=== PATIENT | male | born 1980 | race Caucasian/White ===

== ENCOUNTER 2017-04-27 16:27 | Emergency (ER) | payer BC ==
[2017-04-27 16:32] VITALS: BP 147/83
[2017-04-27] MEDS ORDERED: PREDNISONE 20 MG TABLET PO ONE (17:20)
--- NOTE | 2017-04-27 17:24 | ER Document Report ---
HPI - HPI Patient complains to provider of: Skin rash Onset: Other - 5 days Onset/Duration: Persistent Quality of pain: Burning Pain Level: 4 Context: Patient presents complaining of pruritic skin rash for the past 5 days. Patient states he has been working outside recently and is concerned that he has poison kana. Patient has used [id number] poison kana skin wash without improvement of his symptoms. Associated Symptoms: Other - skin rash Exacerbated by: Denies Relieved by: Denies Similar symptoms previously: No Recently seen / treated by doctor: No - ROS ROS below otherwise negative: Yes Systems Reviewed and Negative: Yes All other systems reviewed and negative - CONSTITUTIONAL Constitutional: DENIES: Fever, Chills - NEURO Neurology: DENIES: Weakness - DERM Skin Problems: Rash Past Medical History - General Information source: Patient - Social History Smoking Status: Unknown if Ever Smoked Frequency of alcohol use: None Drug Abuse: None Occupation: [employer] Family History: Reviewed & Not Pertinent Renal/ Medical History: Denies: Hx Peritoneal Dialysis Psychiatric Medical History: Reports: Hx Anxiety, Hx Depression Surgical Hx: Negative Vertical Provider Document - CONSTITUTIONAL Agree With Documented VS: Yes Exam Limitations: No Limitations General Appearance: WD/WN, No Apparent Distress - INFECTION CONTROL TRAVEL OUTSIDE OF THE [place] IN LAST 30 DAYS: No - HEENT HEENT: Atraumatic, Normal ENT Exam, Normocephalic - NECK Neck: Normal Inspection, Supple - RESPIRATORY Respiratory: Breath Sounds Normal, No Respiratory Distress O2 Sat by Pulse Oximetry: 98 - CARDIOVASCULAR Cardiovascular: Regular Rate, Regular Rhythm, No Murmur - MUSCULOSKELETAL/EXTREMETIES Musculoskeletal/Extremeties: MAEW - NEURO Level of Consciousness: Awake, Alert, Appropriate Motor/Sensory: No Motor Deficit - DERM Integumentary: Warm, Dry, Rash - Edematous maculopapular rash with scattered vesicular lesions consistent with a contact dermatitis to bilateral upper extremities, lower extremities and to left side of face. Course - Vital Signs Vital signs: Temp Pulse Resp BP Pulse Ox 98.2 F 85 16 147/83 H 98 04/27/17 16:30 04/27/17 16:30 04/27/17 16:30 04/27/17 16:30 04/27/17 16:30 Discharge - Discharge Clinical Impression: Elevated blood pressure reading Contact dermatitis Qualifiers: Contact dermatitis type: unspecified Contact dermatitis trigger: unspecified trigger Qualified Code(s): L25.9 - Unspecified contact dermatitis, unspecified cause Condition: Stable Disposition: HOME, SELF-CARE Instructions: Contact Dermatitis ([facility]), Steroid Medication Additional Instructions: Return immediately for any new or worsening symptoms Followup with your primary care provider, call tomorrow to make a followup appointment Prescriptions: Hydroxyzine HCl [Atarax 25 mg Tablet] 1 - 2 tab PO QID #25 tablet Prednisone [Deltasone 5 mg Tablet] 5 mg PO ASDIR PRN #100 tablet PRN Reason: Forms: Elevated Blood Pressure, Return to Work Referrals: MICHELLE GRESHAM PA [Primary Care Provider] - Follow up as needed
== END 2017-04-27 17:32 | disposition home or self-care (01) ==
LOC: ER 16:27
DX: L25.9 Unspecified contact dermatitis, unspecified cause (principal); R03.0 Elevated blood-pressure reading, without diagnosis of hypertension
CPT/HCPCS: 99283; J7512

== ENCOUNTER 2018-12-21 09:46 | Emergency (ER) | payer BC ==
[2018-12-21] MEDS ORDERED: LIDOCAINE 1% INJ-PF (10 MG/ML) 30 ML SDV INJ ONE (11:43)
[2018-12-21] MEDS ORDERED: NORMAL SALINE 1000 ML 1,000 ML IV ONE (11:44)
--- NOTE | 2018-12-21 12:11 | ER Document Report ---
Addendum entered and electronically signed by LIZA CHILDS PA-C 12/21/18 13:48: Procedures - Laceration/Wound Repair face Wound length (cm): 2.5 Wound's Depth, Shape: Superficial, Irregular Laceration pre-procedure: Sterile PPE donned, Sterile drapes applied, Shur-Clens applied Anesthetic type: 1% Lidocaine Volume Anesthetic (mLs): 5 Wound explored: Clean, No foreign body removed Irrigated w/ Saline (mLs): 500 Wound Debrided: Minimal Wound Repaired With: Sutures Suture Size/Type: 5:0, Ethilon Number of Sutures: 7 Layer Closure?: Yes Deep Layer Suture Size/Type: 5:0, Gut Number Deep Layer Sutures: 2 Post-procedure wound care: Sterile dressing applied Post-procedure NV exam normal: Yes Complications: No nose Wound length (cm): 1 Wound's Depth, Shape: Superficial Laceration pre-procedure: Sterile PPE donned, Sterile drapes applied Wound explored: Clean Irrigated w/ Saline (mLs): 100 Wound Debrided: Minimal Wound Repaired With: Dermabond Post-procedure NV exam normal: Yes Complications: No Original Note: ED General - General Chief Complaint: Laceration Stated Complaint: FALL/MOUTH PAIN Time Seen by Provider: 12/21/18 11:31 Primary Care Provider: MICHELLE GRESHAM PA [Primary Care Provider] - Follow up as needed TRAVEL OUTSIDE OF THE [place] IN LAST 30 DAYS: No - HPI Notes: Patient is a 38-year-old male that presents to the emergency department for chief complaint of facial injury and syncope. Patient states he was in the shower he began to feel lightheaded. He states he then passed out hitting his face on a trash can. He does endorse full loss of consciousness. Patient complaining of pain in his lip and nose. Patient also endorsing a generalized headache. He denied any palpitations, chest pain and shortness of breath. He has been experiencing an upper respiratory illness for the last few weeks stating he has been coughing and congested. He denied any fevers or chills. Patient was planning on seeing his primary care doctor today for his URI symptoms but was unable to get an appointment. He has not had any alcohol to drink recently. He denies drinking any fluids this morning. Past Medical History: Negative Past Surgical History: Negative Social History: Denies drugs alcohol and tobacco Family History: Reviewed and noncontributory for presenting illness Allergies: Reviewed, see documented allergy list. REVIEW OF SYSTEMS: CONSTITUTIONAL : No fever No chills No diaphoresis No recent illness EENT: No vision changes congestion Facial pain No sore throat CARDIOVASCULAR: No chest pain No palpitations RESPIRATORY: No shortness of breath cough No difficulty breathing GASTROINTESTINAL: No abdominal pain No nausea No vomiting No diarrhea GENITOURINARY: No dysuria No hematuria No difficulty urinating MUSCULOSKELETAL: No back pain No leg pain No arm pain SKIN: No rashes No lesions LYMPHATIC: No swollen, enlarged glands. NEUROLOGICAL: lightheadedness headache No weakness No paresthesias PSYCHIATRIC: No anxiety No depression PHYSICAL EXAMINATION: Vital signs reviewed, nursing noted reviewed. GENERAL: Well-appearing, well-nourished and in no acute distress. HEAD: Atraumatic, normocephalic. EYES: Eyes appear normal, extraocular movements intact, sclera anicteric, conjunctiva are normal. ENT: nares patent, no nasal septal hematoma, nasal bridge tenderness with no deformity. Nasal bridge ecchymosis, edema and laceration with no active bleeding, oropharynx clear without exudates. Moist mucous membranes. No jaw malocclusion or dental laxity. No dental injury. Gingival abrasion on mandibular anterior right side with no active bleeding. Gaping 2.5 cm linear right upper lip laceration with no active bleeding, full-thickness. NECK: Normal range of motion, supple without lymphadenopathy, nontender LUNGS: Breath sounds clear to auscultation bilaterally and equal. No wheezes rales or rhonchi. HEART: Tachycardic rate and regular rhythm without murmurs ABDOMEN: Soft, nontender, normoactive bowel sounds. No rebound, guarding, or rigidity. No masses appreciated. EXTREMITIES: Nontender, good range of motion, no pitting or edema. NEUROLOGICAL: No focal neurological deficits. Moves all extremities spontaneously Motor and sensory grossly intact on exam. PSYCH: Normal mood, normal affect. SKIN: Warm, Dry, normal turgor, nasal bridge and lip laceration as described above. - Related Data Allergies/Adverse Reactions: No Known Allergies Allergy (Unverified 12/21/18 09:48) Past Medical History - Social History Smoking Status: Never Smoker Chew tobacco use (# tins/day): No Frequency of alcohol use: None Drug Abuse: None Family History: Reviewed & Not Pertinent Patient has suicidal ideation: No Patient has homicidal ideation: No Renal/ Medical History: Denies: Hx Peritoneal Dialysis Psychiatric Medical History: Reports: Hx Anxiety, Hx Depression Physical Exam - Vital signs Vitals: Temp Pulse Resp BP Pulse Ox 98.1 F 113 H 18 133/80 H 96 12/21/18 09:50 12/21/18 09:50 12/21/18 09:50 12/21/18 09:50 12/21/18 09:50 Course - Re-evaluation Re-evalutation: 12/21/18 12:11 Vitals reviewed. Nursing notes reviewed. Patient offered pain medication but declined stating he is currently feeling okay. His tetanus vaccine has been updated within the last 5 years. 12/21/18 13:07 CT head and facial bones show no acute bony injury or intracranial hemorrhage. Patient's chest x-ray which was performed because of his complaints of upper respiratory symptoms shows no acute pneumonia. His cough and congestion is likely viral. He is oxygenating well on room air and not requiring any antibiotics. Patient counseled on close head injury precautions. His syncope occurred in a hot shower and he has not had anything to eat or drink yet today. He syncope likely vasovagal. He did not have any chest pain or palpitations and I do not suspect any dysrhythmia as an underlying cause of syncope. I counseled him on increasing his oral hydration while he is ill. His lacerations were repaired by Glenna Childs, see separate procedure note. Patient will follow with primary care for suture removal. He is stable at discharge. Facial Bones CT 12/21/18 11:43 IMPRESSION: NO ACUTE FINDINGS. Head CT 12/21/18 11:43 IMPRESSION: 1. No acute intracranial abnormality. 2. Ethmoid and bilateral maxillary sinus disease. Small air-fluid level in the right maxillary sinus suggest acute superimposed inflammatory changes. 3. Soft tissue density in the maxillary infundibulum bilaterally may represent inflammatory changes. EVIDENCE OF ACUTE STROKE: NO. Chest X-Ray 12/21/18 11:59 IMPRESSION: Minimal left basilar bandlike atelectasis - Vital Signs Vital signs: Temp Pulse Resp BP Pulse Ox 98.1 F 113 H 18 133/80 H 96 12/21/18 09:50 12/21/18 09:50 12/21/18 09:50 12/21/18 09:50 12/21/18 09:50 Discharge - Discharge Clinical Impression: Vasovagal syncope Closed head injury Qualifiers: Encounter type: initial encounter Qualified Code(s): S09.90XA - Unspecified injury of head, initial encounter Lip laceration Qualifiers: Encounter type: initial encounter Qualified Code(s): S01.511A - Laceration without foreign body of lip, initial encounter Nasal laceration Qualifiers: Encounter type: initial encounter Qualified Code(s): S01.21XA - Laceration without foreign body of nose, initial encounter Condition: Stable Disposition: HOME, SELF-CARE Instructions: Laceration Care ([facility]), Head Injury Precautions ([facility]), Vasovagal Symptoms ([facility]), Upper Respiratory Illness ([facility]) Additional Instructions: Please return to the emergency department if you have any worsening, or concern of your symptoms. Please return to the emergency department if you develop chest pain, difficulty breathing, severe abdominal pain, or ongoing vomiting. Please follow-up with your primary care physician in 5 days for suture removal. If prescribed, take all medications as directed. If you have any questions or concerns do not hesitate to return the emergency department for evaluation. Referrals: MICHELLE GRESHAM PA [Primary Care Provider] - Follow up in 3-5 days
--- NOTE | 2018-12-21 12:30 | RADIOLOGY REPORT (SQ) ---
EXAM DESCRIPTION: CT FACIAL AREA WITHOUT COMPLETED DATE/TIME: 12/21/2018 12:18 pm REASON FOR STUDY: trauma COMPARISON: None. TECHNIQUE: Noncontrasted images through the facial bones and orbits windowed for bone and soft tissu e. Additional coronal and sagittal reconstructed images reviewed. All images stored on PACS. All CT scanners at this facility use dose modulation, iterative reconstruction, and/or weight based d osing when appropriate to reduce radiation dose to as low as reasonably achievable (ALARA). [facility]: Dose Right [facility]: CareDose [facility]: Dose Right [facility]: Teradose 4D [facility]: [employer] RADIATION DOSE: CT Rad equipment meets quality standard of care and radiation dose reduction techniq ues were employed. CTDIvol: 30.4 mGy. DLP: 604 mGy-cm. mGy. LIMITATIONS: None. FINDINGS: FACIAL BONES: No fracture or bone lesion. ORBITS: Intact. No fracture. Symmetric intact globes and retroorbital soft tissues. PARANASAL SINUSES: Mucosal thickening and fluid in the maxillary sinuses. SOFT TISSUES: No mass or edema. INFERIOR BRAIN: See separate report. OTHER: No other significant finding. IMPRESSION: NO ACUTE FINDINGS. TECHNICAL DOCUMENTATION: JOB ID: [id number] Quality ID # [id number]: Final reports with documentation of one or more dose reduction techniques (e.g., Au tomated exposure control, adjustment of the mA and/or kV according to patient size, use of iterative reconstruction technique) 2010 [employer]- All Rights Reserved Reading location - IP/workstation name: [email or web address]
--- NOTE | 2018-12-21 12:32 | RADIOLOGY REPORT (SQ) ---
EXAM DESCRIPTION: CHEST 2 VIEWS COMPLETED DATE/TIME: 12/21/2018 12:20 pm REASON FOR STUDY: cough COMPARISON: None. EXAM PARAMETERS: NUMBER OF VIEWS: two views TECHNIQUE: Digital Frontal and Lateral radiographic views of the chest acquired. RADIATION DOSE: NA LIMITATIONS: none FINDINGS: LUNGS AND PLEURA: Minimal left basilar bandlike atelectasis. Lungs are otherwise well inflated and clear. No pleural effusion. No pneumothorax. MEDIASTINUM AND HILAR STRUCTURES: No masses or contour abnormalities. HEART AND VASCULAR STRUCTURES: Heart normal size. No evidence for failure. BONES: No acute findings. HARDWARE: None in the chest. OTHER: No other significant finding. IMPRESSION: Minimal left basilar bandlike atelectasis TECHNICAL DOCUMENTATION: JOB ID: [id number] [employer]- All Rights Reserved Reading location - IP/workstation name: [email or web address]
--- NOTE | 2018-12-21 12:35 | RADIOLOGY REPORT (SQ) ---
EXAM DESCRIPTION: CT HEAD WITHOUT COMPLETED DATE/TIME: 12/21/2018 12:18 pm REASON FOR STUDY: head injury COMPARISON: None. TECHNIQUE: Axial images acquired through the brain without intravenous contrast. Images reviewed wi th bone, brain and subdural windows. Additional sagittal and coronal reconstructions were generated. Images stored on PACS. All CT scanners at this facility use dose modulation, iterative reconstruction, and/or weight based d osing when appropriate to reduce radiation dose to as low as reasonably achievable (ALARA). [facility]: Dose Right [facility]: CareDose [facility]: Dose Right [facility]: Teradose 4D [facility]: [employer] RADIATION DOSE: CT Rad equipment meets quality standard of care and radiation dose reduction techniq ues were employed. CTDIvol: 53.2 mGy. DLP: 1044 mGy-cm. LIMITATIONS: None. FINDINGS: VENTRICLES: Normal size and contour. The cisterns are patent. CEREBRUM: No masses. No hemorrhage. No midline shift. No evidence for acute infarction. Normal gra y/white matter differentiation. No areas of low density in the white matter. CEREBELLUM: No masses. No hemorrhage. No alteration of density. No evidence for acute infarction. EXTRAAXIAL SPACES: No fluid collections. No masses. ORBITS AND GLOBE: No intra- or extraconal masses. Normal contour of globe without masses. CALVARIUM: No fracture. PARANASAL SINUSES: Mucous retention cyst or polyps in the bilateral maxillary sinuses. Small air-fl uid level in the right maxillary sinus suggest acute sinus disease. Slight to mild mucosal thickening in the ethmoid sinuses. No air-fluid levels. Focal soft tissue de nsity in in the bilateral maxillary infundibulum may represent inflammatory changes. SOFT TISSUES: No mass or hematoma. OTHER: No other significant finding. IMPRESSION: 1. No acute intracranial abnormality. 2. Ethmoid and bilateral maxillary sinus disease. Small air-fluid level in the right maxillary sinu s suggest acute superimposed inflammatory changes. 3. Soft tissue density in the maxillary infundibulum bilaterally may represent inflammatory changes. EVIDENCE OF ACUTE STROKE: NO. COMMENT: Quality ID # [id number]: Final reports with documentation of one or more dose reduction techniques (e.g., Automated exposure control, adjustment of the mA and/or kV according to patient size, use of iterative reconstruction technique) TECHNICAL DOCUMENTATION: JOB ID: [id number]- All Rights Reserved Reading location - IP/workstation name: [email or web address]
[2018-12-21 14:26] VITALS: BP 126/84
== END 2018-12-21 14:26 | disposition home or self-care (01) ==
LOC: ER 09:46
PROC: 0HQ1XZZ Repair Face Skin, External Approach (ICD-10-PCS; principal; 2018-12-21)
PROC: 09QKXZZ Repair Nasal Mucosa and Soft Tissue, External Approach (ICD-10-PCS; 2018-12-21)
DX: R55 Syncope and collapse (principal); S01.21XA Laceration without foreign body of nose, initial encounter; S01.511A Laceration without foreign body of lip, initial encounter; S09.90XA Unspecified injury of head, initial encounter; K08.89 Other specified disorders of teeth and supporting structures; W19.XXXA Unspecified fall, initial encounter
CPT/HCPCS: 99283; 71046; 70450; 70486; 12013; J3490; J7030